=== PATIENT | male | born 1930 | race Caucasian/White ===

== ENCOUNTER → 2016-12-19 | Outpatient (CLI) | payer MEDICARE, BC ==
[~2016-12-19] MED LIST: ACYC800T PO; ASPI-558 PO; ATOR40TA20 PO; GABA-338 PO; HYDR-3989 PO; METO1TAB13 PO
--- NOTE | 2016-12-20 09:43 | DI ---
Indication: ITS.REASON: M54.16, M54.5 PROCEDURE: MRI LUMBAR SPINE W/O CONTRAST: Encounter: Initial Comparison: None Technique: Multiplanar multisequence MR imaging of the lumbar spine was performed without contrast. Findings: Alignment of the lumbar spine shows minimal scoliosis. No acute fracture or subluxation. Vertebral body heights are maintained. Conus medullaris terminates normally at L1-L2. The paraspinal soft tissues are unremarkable. Segmental analysis: L1-L2: Normal L2-L3: Normal L3-L4: Mild disk height loss with left lateral bulging but no central canal stenosis. Mild left neural foraminal stenosis. No significant right foraminal narrowing. L4-L5: Left foraminal and lateral disk protrusion. No central canal stenosis. Degenerative facet change contributing to moderate left neural foraminal stenosis. No significant right foraminal narrowing. L5-S1: Small central disk bulge with a high intensity zone but no central canal stenosis. Mild degenerative facet disease on the right without significant neural foraminal stenosis. Impression: Left neural foraminal stenosis at L3-L4 and L4-L5. .
== END ==
LOC: IMA 17:46
PROVIDERS: ATTEND Physician Assistant
DX: M48.06 Spinal stenosis, lumbar region (principal); M54.16 Radiculopathy, lumbar region; M54.5 Low back pain

== ENCOUNTER → 2017-01-08 | Outpatient (CLI) | payer MEDICARE, BC ==
[~2017-01-08] MED LIST changes: +IOHEXOL 180 MG/ML 20ml INJECTION ONE; +LIDOCAINE 1% (10mg/ml) 5ml VIAL ONE; +MethylPREDNISolone ACETATE 40mg/1ml ONE
--- NOTE | 2017-01-08 11:29 | DI ---
Indication:ITS.REASON: M48.06 STENOSIS; M54.16 RADICULOPATHY; M54.5 LOW BACK PAIN Procedure:EPIDURAL INJ.SPINE W FLUO CATH LUMBAR EPIDURAL INJECTION: The patient has low back and radicular pain. The patient has not had any previous epidurals. The details of the procedure, including the benefits, risks, and alternatives were explained to the patient. All of their questions were answered. They stated that they understood and wished to proceed. Informed consent was then obtained. A pre-procedural timeout was performed to confirm the correct patient and procedure. Utilizing aseptic technique, local lidocaine anesthetic, and fluoroscopic guidance throughout, a 22-gauge spinal needle was directed into the lumbar epidural space via an interlaminar approach at the L5-S1 level. Due to the patient's suspected iodine allergy, no iodinated contrast was utilized during this procedure. A small amount of air contrast was injected to assure proper positioning of the needle tip. A fluoroscopic image was then taken and archived. Subsequently, 120 mg Depo-Medrol was injected into the epidural space. The patient tolerated the procedure well. IMPRESSION: Successful lumbar epidural steroid injection. Fluoroscopy dose: 9.10 mGy (Cumulative air kerma) Gustavo Garber RPA/BRITTANY performed this under my personal supervision. .
== END ==
LOC: IMA 10:22
PROVIDERS: ATTEND Internal Medicine
DX: M48.06 Spinal stenosis, lumbar region (principal); M54.16 Radiculopathy, lumbar region; M54.5 Low back pain
CPT/HCPCS: 62323; J1030; Q9965

== ENCOUNTER → 2017-02-01 | Outpatient (CLI) | payer MEDICARE, BC ==
[~2017-02-01] MED LIST changes: +GADOBUTROL 10mMol/10ml INJECTION IV ONE; -IOHEXOL 180 MG/ML 20ml INJECTION ONE; -LIDOCAINE 1% (10mg/ml) 5ml VIAL ONE; -MethylPREDNISolone ACETATE 40mg/1ml ONE; +NORMAL SALINE 50 ML IV ONE; +SALINE FLUSH 10ml SYRINGE ONE
--- NOTE | 2017-02-01 12:44 | DI ---
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 Special sequences were performed with attention to the pituitary gland with dynamic postcontrast imaging performed. Contrast: 7.5 mL of Gadavist FINDINGS: Pituitary: Pituitary gland appears normal. Posterior pituitary bright spot is normally located. No hyper or hypointense pituitary masses appreciated. No hyper or hypoenhancing lesions seen on the dynamic postcontrast sequences. Normal pituitary enhancement. The pituitary stalk is midline. Brain: The ventricles are of normal size, shape, and contour for the patient's age. There are small nonspecific punctate areas of T2-weighted and T2 FLAIR weighted signal abnormality in the deep frontoparietal white matter that most likely represent small vessel ischemic disease. This is of a degree that is considered to be normal for the patient's age. The brain stem, cerebellum, and cerebral hemispheres otherwise have a normal morphologic appearance as well as MR signal intensity on all pulse sequences. Following intravenous administration of contrast, no areas of abnormal enhancement are evident. There are no areas of restricted diffusion to suggest an acute infarct. There is no evidence of an intracranial mass lesion, intracranial hemorrhage, or hydrocephalus. The visualized portions of the orbits, calvarium, paranasal sinuses, and skull base demonstrate no significant abnormality. IMPRESSION: MRI Pituitary: Normal exam MRI Brain: Unremarkable MRI of the head for the patient's age with and without contrast. .
== END ==
LOC: IMA 08:19
PROVIDERS: ATTEND Physician Assistant
DX: E03.8 Other specified hypothyroidism (principal); R25.9 Unspecified abnormal involuntary movements
CPT/HCPCS: 70553; A9585; J7050